=== PATIENT | female | born 1995 | race Two or more races ===

== ENCOUNTER 2017-11-24 23:40 | Emergency (ER) | payer OTHER ==
[~2017-11-24] VITALS: Ht 160 cm; Wt 62.6 kg
[~2017-11-24 23:40] MED LIST: FIORICET 50-321 EACH PO
[2017-11-25] MEDS ORDERED: ZANTAC300 MG PO (08:06)
[2017-11-25] MEDS ORDERED: ZOFRAN ODT4 MG PO (08:06)
== END 2017-11-25 08:20 | disposition home or self-care (01) ==
LOC: ER 23:40
DX: K29.70 Gastritis, unspecified, without bleeding (principal)

== ENCOUNTER 2018-02-01 19:25 | Emergency (ER) | payer OTHER ==
[~2018-02-01] VITALS: Ht 157.5 cm; Wt 58.5 kg
[~2018-02-01 19:25] MED LIST changes: +ZANTAC300 MG PO; +ZOFRAN ODT4 MG PO
== END 2018-02-02 00:30 | disposition home or self-care (01) ==
LOC: ER 19:25
DX: B34.9 Viral infection, unspecified (principal)